=== PATIENT | male | born 1980 | race Caucasian/White ===

== ENCOUNTER 2018-12-21 16:37 | Emergency (ER) | payer MEDICAID, OTHER ==
[~2018-12-21] VITALS: Ht 182.9 cm; Wt 79.0 kg
[2018-12-21 16:52] VITALS: BP 175/97
--- NOTE | 2018-12-21 17:36 | NUR ---
Pt to room 20 from [facility] Addendum: 12/21/18 at 1736 by NAREN Pt to room 4 from [facility]
--- NOTE | 2018-12-21 17:52 | NUR ---
38 Y/O MALE PRESENTS TO ED WITH C/O LEFT PALM/THUMB AREA SWELLING. PER PT "I THINK I MIGHT HAVE A SLIVER OR SOMETHING IN MY HAND. IT'S NOT UNCOMMON FOR THIS TO HAPPEN WITH MY LINE OF WORK. IT HAPPENED ABOUT 5 DAYS AGO. RECENTLY IT HAS JUST GOTTEN SWOLLEN." NO ACUTE DISTRESS NOTED. GIRLFRIEND BEDSIDE. IMAGING BEDSIDE. NO C/O N/V/D, TRAUMA, SYNCOPE, CP, SOB.
[2018-12-21] MEDS ORDERED: CEFAZOLIN 1,000 MG IM ONE (18:00)
[2018-12-21] MEDS ORDERED: CEFAZOLIN 1,000 MG ONE (18:03)
--- NOTE | 2018-12-21 18:14 | NUR ---
MEDICATION ADMINISTERED PER ORDER. PT TOLERATED WITH NO COMPLICATIONS. GIRLFRIEND BEDSIDE.
--- NOTE | 2018-12-21 18:57 | NUR ---
Patient/Caregiver given discharge instructions and they have confirmed that they understand the instructions. Patient ambulatory with steady gait. PT LEFT WITH ALL PERSONAL BELONGINGS.
== END 2018-12-21 18:59 | disposition home or self-care (01) ==
LOC: ED 18:37
DX: L03.012 Cellulitis of left finger (principal)
CPT/HCPCS: 73130; 99283; J0690

== ENCOUNTER 2019-09-01 23:49 | Emergency (ER) | payer MEDICAID ==
[~2019-09-01] VITALS: Ht 182.9 cm; Wt 79.0 kg
[2019-09-01 23:50] VITALS: BP 147/99
[2019-09-02] MEDS ORDERED: LIDOCAINE 1%-EPI 1:100K, 20ML SQ ONE (00:30)
[2019-09-02] MEDS ORDERED: DIPH,PERTUSS(ACELL),TET VAC/PF 0.5 ML IM-VACC ONE ×2 (00:30→00:36)
[2019-09-02] MEDS ORDERED: LIDOCAINE-MPF 1%, 5ML ONE (00:35)
== END 2019-09-02 02:02 | disposition home or self-care (01) ==
LOC: ED 09-02 01:28
DX: S51.811A Laceration without foreign body of right forearm, initial encounter (principal); G89.11 Acute pain due to trauma; F17.210 Nicotine dependence, cigarettes, uncomplicated; W22.8XXA Striking against or struck by other objects, initial encounter; Y93.89 Activity, other specified; Y92.098 Other place in other non-institutional residence as the place of occurrence of the external cause; Y99.8 Other external cause status
CPT/HCPCS: 12032; 90471; 90715; 99284